=== PATIENT | male | born 2000 | race Caucasian/White ===

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

== ENCOUNTER 2022-06-17 15:56 | Emergency (ER) | payer OTHER, SELFPAY ==
--- NOTE | ~2022-06-17 | XR_ITS ---
EXAMINATION: XR chest 2V DATE: 06/17/2022 16:34 INDICATION: Shortness of breath and left-sided chest discomfort TECHNIQUE: frontal view of the chest was obtained. COMPARISON: Chest radiograph dated 10/26/2021 FINDINGS: Small left apical pneumothorax with 1.5 cm maximal separation of the pleural margins. Suture line is seen at the right apex suggesting partial pneumonectomy for a leaking apical bleb resulting in a righ t-sided pneumothorax. Lungs otherwise clear with no focal airspace opacities, pulmonary edema, pleura l effusion or right-sided pneumothorax. Right lung remains otherwise clear The cardiomediastinal silh ouette is normal and remains midline. Visualized bones and soft tissues are unremarkable. IMPRESSION: 1. New small left apical pneumothorax. Reviewed, dictated and finalized at location A.
--- NOTE | 2022-06-17 16:03 | ED.SOB ---
HPI - SOB/Dyspnea General Chief Complaint: Shortness of Breath/Dyspnea Stated Complaint: sob Time Seen by Provider: 06/17/22 16:10 Source: patient Mode of arrival: ambulatory Limitations: no limitations History of Present Illness HPI Narrative: Mr. Briseno is a 22-year-old male patient presenting to the clinic today with complaints of left-sided chest discomfort, pain between his shoulder blades, and shortness of breath. He reports that he is unable to get a deep breath in without having pain. States the pain is to the left upper chest. History of spontaneous pneumo. Reports the pain started approx 4 hours ago. Smoked THC last night and thinks he may have aspirated some of the water from the bong that he was smoking this. Smoked THC again today prior to the pain. Related Data Allergies Allergy/AdvReac Type Severity Reaction Status Date / Time poison charlee extract Allergy Unknown Rash Verified 06/17/22 16:01 Bumble Bee Allergy Unknown Swelling Uncoded 06/17/22 16:01 Wasp Allergy Unknown Swelling Uncoded 06/17/22 16:01 SALT WATER AdvReac Unknown Unknown Uncoded 06/17/22 16:01 Review of Systems Review of Systems: Pertinent positives per HPI. Patient denies any fever, chills, rash, headache, visual changes, dizziness, cough, runny nose, sore throat, shortness of breath, chest pain, palpitations, nausea, vomiting, diarrhea, constipation, abdominal pain, or any urinary issues. PMFSH Past Medical History Medical History No acute medical problems Social History Social History Smoking status: Current every day smoker Alcohol intake: current Gender identity (if verbalized by the patient): Male Spiritual care concerns: No Comments At the time of my signature, I reviewed and agree with the nursing past medical, surgical, social, and family history. There is no relevant family history pertinent to the patient complaint. Exam Narrative: General: Well-developed, well nourished, in no apparent distress Head: Normocephalic, atraumatic Eyes: Pupils equally round and reactive to light bilaterally, EOM intact, sclera and conjunctive clear, no discharge, lids normal Ears: TMs intact and clear, ear canals clear, no drainage, grossly hearing normal. Nose: Nares patent, no discharge, mild good inflammation, no sinus tenderness. Mouth: Oropharynx without lesions or masses, good dentition, MMM. Neck: Supple, trachea midline, no enlargement of anterior or posterior cervical nodes, no thyroid masses or goiter palpable. Cardio: Regular rate and rhythm, s1 and s2 normal, no murmur appreciated. Resp: Faint rub/crackles heard over the left midlung posteriorly, no rhonchi or wheezing, able to speak in full sentences, SPO2 99% on room air. Course Course Emergency Course: Portions of this record may have been created with voice recognition software. Level of Care: Express Care Visit Vital Signs Vital signs: Vital signs reviewed MDM - SOB/Dyspnea MDM Narrative Medical decision making narrative: At the time of visit patient is resting comfortably on the exam table. X-ray was performed and he has a small 1.5 cm left apex spontaneous pneumo. Spoke with Dr. Mohan- Radiologist regarding x-ray/ patient case and he states he would feel comfortable sending patient home and have him follow up if symptoms worsen. Supportive measures were discussed with the patient and he is to follow-up with his weight checker. If his chest pain or shortness of breath gets any worse he is to go to the ER. We will send in a prescription for albuterol inhaler to see if this helps some with any shortness of breath. Differential Diagnosis Differential diagnosis: Likely acute exacerbation of chronic obstructive airways disease, asthma with exacerbation, pulmonary embolism and other (Spontaneous pneumo, pleurisy) Imaging Data Radiologist's impression: [place]
[2022-06-17 16:05] VITALS: BP 113/63; PULSE 90; RESP 16; TEMP 36.9; O2SAT 99
== END 2022-06-17 17:04 | disposition home or self-care (01) ==
PROVIDERS: Emergency Provider Nurse Practitioner Family; PCP Internal Medicine
DX: J93.11 Primary spontaneous pneumothorax (principal)
CPT/HCPCS: 71046; 99213; G0463

== ENCOUNTER 2022-12-08 11:44 | Emergency (ER) | payer OTHER, SELFPAY ==
--- NOTE | ~2022-12-08 | XR_ITS ---
EXAMINATION: XR chest 2V DATE: 12/08/2022 12:09 INDICATION: Cough. Shortness of breath. TECHNIQUE: Frontal and lateral views of the chest were obtained. COMPARISON: Chest 2 views 06/17/2022 FINDINGS: There are staple lines at the lung apices. The chest demonstrates clear lungs without pneum onia, pleural effusion, or pneumothorax. The heart size is normal. IMPRESSION: 1. No acute cardiopulmonary disease. Reviewed, dictated and finalized at location A. ORATIVE CARE TECHNICIAN
--- NOTE | 2022-12-08 11:50 | ED.URI ---
HPI - URI/Sore Throat General Chief Complaint: Upper Respiratory Infection Stated Complaint: cold sx Time Seen by Provider: 12/08/22 11:51 Source: patient Mode of arrival: ambulatory Limitations: no limitations History of Present Illness HPI Narrative: Anali is a 22-year-old male patient presenting to the clinic today with complaints of productive cough of green phlegm, feeling feverish, chills, chest burning, and sore throat x1 week. He reports he does have some mild shortness of breath at times. Denies any known exposure to a will COVID, flu, or strep. Does have history spontaneous pneumothorax bilaterally MD elicited complaint: sore throat and nasal congestion Related Data Allergies Allergy/AdvReac Type Severity Reaction Status Date / Time poison charlee extract Allergy Unknown Rash Verified 12/08/22 11:47 Bumble Bee Allergy Unknown Swelling Uncoded 12/08/22 11:47 Wasp Allergy Unknown Swelling Uncoded 12/08/22 11:47 SALT WATER AdvReac Unknown Unknown Uncoded 12/08/22 11:47 Review of Systems Review of Systems: Pertinent positives per HPI. Patient denies any rash, headache, visual changes, dizziness, shortness of breath, chest pain, palpitations, nausea, vomiting, diarrhea, constipation, abdominal pain, or any urinary issues. PMFSH Past Medical History Medical History No acute medical problems Social History Social History Smoking status: Current every day smoker Alcohol intake: current Gender identity (if verbalized by the patient): Male Spiritual care concerns: No Comments At the time of my signature, I reviewed and agree with the nursing past medical, surgical, social, and family history. There is no relevant family history pertinent to the patient complaint. Exam Narrative: General: Well-developed, well nourished, in no apparent distress Head: Normocephalic, atraumatic Eyes: Pupils equally round and reactive to light bilaterally, EOM intact, sclera and conjunctive clear, no discharge, lids normal Ears: TMs intact and clear, ear canals clear, no drainage, grossly hearing normal. Nose: Nares patent, clear nasal discharge, moderate inflammation, no sinus tenderness. Mouth: Oral pharynx without lesions or masses, good dentition, MMM. Postnasal drip, oropharynx red Neck: Supple, trachea midline, mild enlargement of anterior or posterior cervical nodes, no thyroid masses or goiter palpable. Cardio: Regular rate and rhythm, s1 and s2 normal, no murmur appreciated. Resp: Diminished lung sounds in the bases otherwise clear, no rhonchi, rales, wheezing or rubs Course Course Emergency Course: Portions of this record may have been created with voice recognition software. Level of Care: Express Care Visit Vital Signs Vital signs: Vital Signs Temperature 36.3 C L 12/08/22 11:51 Pulse Rate 83 12/08/22 11:51 Respiratory Rate 20 12/08/22 11:51 Blood Pressure 118/74 12/08/22 11:51 Pulse Oximetry 97 12/08/22 11:51 Oxygen Delivery Room Air 12/08/22 11:51 Temperature 36.3 C L 12/08/22 11:51 Pulse Rate 83 12/08/22 11:51 Respiratory Rate 20 12/08/22 11:51 Blood Pressure 118/74 12/08/22 11:51 Pulse Oximetry 97 12/08/22 11:51 Oxygen Delivery Room Air 12/08/22 11:51 Vital signs reviewed MDM - URI/Sore Throat MDM Narrative Medical decision making narrative: At the time of visit patient is resting comfortably on exam table. Chest x-ray was and strep screen were obtained. Strep screen was negative in the clinic today. Chest x-ray was negative for any sign pneumonia. I suspect patient has bronchitis/upper respiratory infection. Symptoms have been going on for 1 week and he is having a productive cough with green phlegm +fever. He is a current smoker. Due to his past medical history, I will go ahead and treat him with around prednisone, azithromycin,
[2022-12-08 11:51] VITALS: BP 118/74; PULSE 83; RESP 20; TEMP 36.3; O2SAT 97
== END 2022-12-08 12:20 | disposition home or self-care (01) ==
PROVIDERS: Emergency Provider Nurse Practitioner Family; PCP Internal Medicine
DX: J40 Bronchitis, not specified as acute or chronic (principal); J06.9 Acute upper respiratory infection, unspecified; F17.200 Nicotine dependence, unspecified, uncomplicated
CPT/HCPCS: 71046; 87081; 87880; 99213; G0463

== ENCOUNTER 2023-09-15 17:48 | Emergency (ER) | payer OTHER, SELFPAY ==
--- NOTE | ~2023-09-15 | XR_ITS ---
EXAMINATION: XR chest 2V 09/15/2023 18:21 INDICATION: History of collapsed lung. Chest pain with shortness of breath. PROCEDURE: 2 view chest COMPARISON: Comparison to multiple prior studies sequentially, with oldest reviewed study dated 10/14. FINDINGS: The lungs are clear. There are surgical sutures at the right apex. The cardiomediastinal si lhouette is within normal limits. There are no pleural effusions. There is no pneumothorax suspecte d. IMPRESSION: 1: NO ACUTE CARDIOPULMONARY DISEASE. Reviewed, dictated and finalized at location A.
[2023-09-15 18:05] VITALS: BP 103/69; PULSE 97; RESP 16; TEMP 37.5; O2SAT 97
--- NOTE | 2023-09-15 18:24 | ED.GENADULT ---
HPI - General Adult General Chief complaint: Upper Respiratory Infection Stated complaint: Sinus Time Seen by Provider: 09/15/23 18:24 Source: patient, RN notes reviewed and old records reviewed Mode of arrival: ambulatory Limitations: no limitations History of Present Illness HPI narrative: 23-year-old male presents to the [facility] with complaints of sinus congestion and sore throat for 2 days. States this morning he woke up with cough, shortness of breath. States he has a history of pneumothorax. Onset (ago): day(s) (2) Related Data Allergies Allergy/AdvReac Type Severity Reaction Status Date / Time poison charlee extract Allergy Unknown Rash Verified 09/15/23 18:13 Bumble Bee Allergy Unknown Swelling Uncoded 12/08/22 11:47 Wasp Allergy Unknown Swelling Uncoded 12/08/22 11:47 SALT WATER AdvReac Unknown Unknown Uncoded 12/08/22 11:47 Review of Systems Review of Systems: All systems reviewed & are unremarkable except as noted in HPI and below Constitutional: Constitutional: Reports no additional constitutional complaints Eyes: Eyes: Reports no additional eye complaints ENT: Reports as per HPI Cardiovascular: Cardiovascular: Reports no additional cardiovascular complaints, Denies chest pain and Denies dyspnea Respiratory: Respiratory: Reports as per HPI, Denies chest congestion, Reports cough and Reports dyspnea Gastrointestinal: Gastrointestinal: Reports no additional gastrointestinal complaints, Denies abdominal pain, Denies nausea and Denies vomiting Musculoskeletal: Musculoskeletal: Reports no additional musculoskeletal complaints Integumentary/Breasts: Skin/Breast: Reports system reviewed and no additional complaints, except as docu Neurologic: Reports system reviewed and no additional complaints, except as documented Psychiatric: Psychiatric: Reports no additional psychiatric complaints Allergic/Immunologic: Allergic/Immunologic: Reports no additional allergic/immunologic complaints [facility] Past Medical History Medical History (Updated 09/16/23 @ 16:09 by Soco Rhoades APRN) No acute medical problems Spontaneous pneumothorax Surgical History Surgical History (Updated 09/16/23 @ 16:07 by Soco Rhoades APRN) History of lung surgery Blebecotmy to me, right apical Social History Social History Smoking status: Current every day smoker Alcohol intake: current Gender identity (if verbalized by the patient): Male Spiritual care concerns: No Comments At the time of my signature, I reviewed and agree with the nursing past medical, surgical, social, and family history. There is no relevant family history pertinent to the patient complaint. Exam Const: General: cooperative, healthy appearing, comfortable, no acute distress, well developed, alert and well nourished Nutritional Appearance: well nourished Orientation/consciousness: patient oriented x3 Limitations: no limitations HENMT: Head: normal to inspection Ears: hearing grossly normal bilaterally, external ears normal, TM's normal bilaterally, EAC's normal, mastoids normal and no periauricular adenopathy Face/Nose/Sinus: Normal external nose present, Normal nares present, Normal nasal mucous membranes and turbinates present, normal facial exam and face symmetric Face and sinus: normal facial exam and face symmetric Mouth: Yes Normal oral and palatal mucosa present, Yes lip normal and Yes moist mucous membranes Throat: posterior oropharynx normal, uvula midline, postnasal drainage and no uvular edema Eyes: General: appearance normal, both eyes and all related structures Alignment and Position: alignment normal Periorbital: periorbital findings normal Pupils: Equal, round and reactive pupils present EOM: EOMs intact bilaterally Neck: Neck: normal visual inspection, full ROM, no lymphadenopathy and no meningeal signs Chest: Chest palpation & inspection: normal inspection of the chest Res
== END 2023-09-15 18:36 | disposition home or self-care (01) ==
PROVIDERS: Emergency Provider Nurse Practitioner; PCP Internal Medicine
DX: J06.9 Acute upper respiratory infection, unspecified (principal); J40 Bronchitis, not specified as acute or chronic; F17.200 Nicotine dependence, unspecified, uncomplicated
CPT/HCPCS: 71046; 87081; 87147; 87880; 99213; G0463

== ENCOUNTER 2025-02-18 13:44 | Emergency (ER) | payer OTHER, SELFPAY ==
[2025-02-18 13:55] VITALS: BP 132/83; PULSE 88; RESP 16; TEMP 37.6; O2SAT 100
[2025-02-18 14:29] LABS: EDUAAPPEAR Cloudy; EDUABILI Negative (Negative); EDUABLOOD Negative (Negative); EDUACOLOR1 Yellow; EDUAGLUCOSE Negative (Negative); EDUAKETONE Negative (Negative); EDUALEUKO Negative (Negative); EDUANITRATE Negative (Negative); EDUAPH 6.5; EDUAPROTEIN Negative (Negative); EDUAUROBILI 0.2
--- NOTE | 2025-02-18 14:38 | ED_ITS ---
HPI - Male Genitourinary General Chief complaint: Urogenital-Male Stated complaint: UTI/Male Problems Time Seen by Provider: 02/18/25 14:00 Source: patient Mode of arrival: ambulatory Limitations: no limitations History of Present Illness HPI Narrative: Anali is a 24-year-old male patient presenting to the clinic today with multiple complaints. He reports he is having painful ejaculations with his semen colored yellow with clumps/ gelatinous. Is concerned about bumps on the scrotum and on the shaft of his penis. Is concerned that he may have herpes. Also reports that he thinks is pilonidal cyst is coming back. Is having pain with setting and the area is tender. Has had history of pilonidal cyst the past and has gotten it lanced it and placed on antibiotics. He states he has not been sexually active for 1-2 years. He is heterosexual. Is an or new relationship and wanted to be checked for STIs prior to being intimate. Denies any fevers, chills, body aches, back pain, abdomen pain, or any testicle pain. Related Data Allergies Allergy/AdvReac Type Severity Reaction Status Date / Time poison charlee extract Allergy Unknown Rash Verified 02/18/25 14:02 Bumble Bee Allergy Unknown Swelling Uncoded 02/18/25 14:02 Wasp Allergy Unknown Swelling Uncoded 02/18/25 14:02 SALT WATER AdvReac Unknown Unknown Uncoded 02/18/25 14:02 Review of Systems Review of Systems: Pertinent positives per HPI. Patient denies any fever, chills, rash, headache, visual changes, dizziness, cough, runny nose, sore throat, shortness of breath, chest pain, palpitations, nausea, vomiting, diarrhea, constipation, abdominal pain. FORMERLY [facility], [facility] Past Medical History Medical History (Updated 02/18/25 @ 14:32 by Alex Wolff APRN) Spontaneous pneumothorax No acute medical problems Surgical History Surgical History History of lung surgery Blebecotmy to me, right apical Social History Social History Smoking status: Current every day smoker Alcohol intake: current Gender identity (if verbalized by the patient): Male Spiritual care concerns: No Comments At the time of my signature, I reviewed and agree with the nursing past medical, surgical, social, and family history. There is no relevant family history pertinent to the patient complaint. Exam Narrative: General: Well-developed, well nourished, in no apparent distress. Head: Normocephalic, atraumatic. Cardio: Regular rate and rhythm, s1 and s2 normal, no murmur appreciated. Resp: Clear to auscultation bilaterally, no rhonchi, rales, wheezing or rubs. Abdomen: Soft, pliable, bowel sounds present in all quadrants, non-tender to palpation, no organomegly, no CVAT tenderness. : Circumcised male without any vesicular or abnormal lesions. No rash. Does have a small benign mass to the right upper lateral scrotum-patient states he has had looked at before, no penile discharge Rectal: Top of left gluteal cleft red, swollen with tenderness with very little fluctuance. Course Course Emergency Course: Portions of this record may have been created with voice recognition software. Level of Care: Express Care Visit Vital Signs Vital signs: Vital Signs Temperature 37.6 C 02/18/25 13:55 Pulse Rate 88 02/18/25 13:55 Respiratory Rate 16 02/18/25 13:55 Blood Pressure 132/83 02/18/25 13:55 Pulse Oximetry 100 02/18/25 13:55 Oxygen Delivery Room Air 02/18/25 13:55 Temperature 37.6 C 02/18/25 13:55 Pulse Rate 88 02/18/25 13:55 Respiratory Rate 16 02/18/25 13:55 Blood Pressure 132/83 02/18/25 13:55 Pulse Oximetry 100 02/18/25 13:55 Oxygen Delivery Room Air 02/18/25 13:55 Vital signs reviewed MDM - Male Genitourinary MDM Narrative Medical decision making narrative: At the time of visit patient is resting comfortably on the exam table. Patient appears to be nontoxic. Labs: Urinalysis negative for any sign of blood, protein, or leukocytes. Chlamydia, gonorrhea, and Trichomonas testing was sent to the lab. Plan: Patient has a infected pilonidal cyst to the left upper gluteal cleft. Prescription for clindamycin and metronidazole was sent to the pharmacy. Awaiting STI testing for further treatment Supportive measures were discussed with the patient and they voiced understanding discharge instructions and agrees to treatment plan. Return precautions reviewed Differential Diagnosis Differential diagnosis: Likely urinary tract infection, priapism, urethritis, epididymitis, genital herpes simplex, prostatitis, acute retention of urine, inguinal hernia and other (Infected pilonidal cyst, STI) Lab Data Labs: Lab Results 02/18/25 Range/Units 14:26 POC Urine Color Yellow POC Urine Clarity Cloudy POC Urine pH 6.5 POC Ur Specif Clyde 1.020 POC Urine Protein Negative (Negative) POC Ur Glucose (UA) Negative (Negative) POC Urine Ketones Negative (Negative) POC Urine Blood Negative (Negative) POC Urine Nitrite Negative (Negative) POC Urine Bilirubin Negative (Negative) POC Urine Urobilinogen 0.2 POC U Leukocyte Esteras Negative (Negative) Discharge Plan Discharge Clinical Impression: Pilonidal cyst Patient Disposition: Home Condition: Stable Instructions: Antibiotic Form, Sexually Transmitted Diseases (ED), Safe Sex Practices (ED), Pilonidal Cyst (ED) Additional Instructions: Urinalysis is negative for any sign of urinary tract infection. Take metronidazole and clindamycin as prescribed to treat pilonidal cyst infection Take a daily probiotic-2 hours before 2 hours after taking when the doses of antibiotics We have tested/treated you for STIs in the clinic today. Avoid any sexual activity- includes oral, anal, or vaginal intercourse until you get results back and have completed any additional recommended treatment regimens. We will contact you if testing is positive and make sure your treatment was appropriate for the type of STI. If symptoms worsen after treatment recommend reevaluation with your PCP or Express care. Patient Language: Surinamese Prescriptions: New clindamycin HCl [Cleocin HCl] 300 mg capsule 300 mg PO Q8H 7 Days Qty: 21 0RF metronidazole 500 mg tablet 500 mg PO Q8H 7 Days Qty: 21 0RF Follow-up/Referrals: Breanne,Alison Jones MD [Primary Care Provider] - Time of Disposition: 14:33 Quality NIHSS Nursing Documentation ED NIHSS nursing documentation: reviewed/agree
[2025-02-18 21:20] LABS: Trichomonas Vag PCR NOT DETECTED (NOT DETECTE)
[2025-02-18 21:43] LABS: Chlamydia trachomatis NOT DETECTED (NOT DETECTE); Neisseria gonorrhoeae PCR NOT DETECTED (NOT DETECTE)
== END 2025-02-18 14:45 | disposition home or self-care (01) ==
PROVIDERS: Emergency Provider Nurse Practitioner Family; PCP Internal Medicine
DX: L05.91 Pilonidal cyst without abscess (principal); F17.200 Nicotine dependence, unspecified, uncomplicated
CPT/HCPCS: 81003; 87491; 87591; 87661; 99213; G0463

== ENCOUNTER 2025-03-03 14:42 | Emergency (ER) | payer OTHER, SELFPAY ==
--- NOTE | 2025-03-03 14:46 | ED_ITS ---
HPI - Skin/Abscess/Foreign Bdy General Chief complaint: Skin/Abscess/Foreign Body Stated complaint: area on buttocks bleeding Time Seen by Provider: 03/03/25 14:45 Source: patient Mode of arrival: ambulatory Limitations: no limitations History of Present Illness HPI narrative: Anali is a 24-year-old male patient presenting to the clinic today with complaints of a painful but is bleeding to his left buttocks. Was recently seen on February 18 and diagnosed with perirectal abscess/possible infected pilonidal cyst. Was given prescription for Flagyl and clindamycin but did not finish those medications. States the area started bleeding and draining yellow purulent discharge today. Denies any fevers, chills, body aches. Has had perirectal abscess in the past. Related Data Allergies Allergy/AdvReac Type Severity Reaction Status Date / Time poison charlee extract Allergy Unknown Rash Verified 03/03/25 14:54 Bumble Bee Allergy Unknown Swelling Uncoded 03/03/25 14:54 Wasp Allergy Unknown Swelling Uncoded 03/03/25 14:54 SALT WATER AdvReac Unknown Unknown Uncoded 03/03/25 14:54 Review of Systems 2 Review of Systems: Pertinent positives per HPI. Patient denies any fever, chills, rash, headache, visual changes, dizziness, cough, runny nose, sore throat, shortness of breath, chest pain, palpitations, nausea, vomiting, diarrhea, constipation, abdominal pain, or any urinary issues. PMFSH Past Medical History Medical History Spontaneous pneumothorax No acute medical problems Surgical History Surgical History History of lung surgery Blebecotmy to me, right apical Social History Social History Smoking status: Current every day smoker Alcohol intake: current Gender identity (if verbalized by the patient): Male Spiritual care concerns: No Comments At the time of my signature, I reviewed and agree with the nursing past medical, surgical, social, and family history. There is no relevant family history pertinent to the patient complaint. Exam Narrative: General: Well-developed, well nourished, in no apparent distress Head: Normocephalic, atraumatic. Cardio: Regular rate and rhythm, s1 and s2 normal, no murmur appreciated. Resp: Clear to auscultation bilaterally, no rhonchi, rales, wheezing or rubs. Rectum: Palpable 1 cm x 1.5 cm firm abscess with opening without drainage at 9:00 of the left perianal area. Mildly tender to palpation with mild erythema Course Course Emergency Course: Portions of this record may have been created with voice recognition software. Level of Care: Express Care Visit Vital Signs Vital signs: Vital signs reviewed MDM - Skin/Abscess/Foreign Bdy MDM Narrative Medical decision making narrative: At the time of visit patient is resting comfortably on the exam table. Patient appears to be nontoxic. Plan: I saw this patient on February 18 and it appeared at that time he had a pilonidal cyst to the right tailbone/gluteal cleft however this perirectal abscess is at 9:00 of the perirectal area. Will send prescription in for clindamycin and metronidazole. Will given for General surgery is a recurring problem for the patient. Supportive measures were discussed with the patient and they voiced understanding discharge instructions and agrees to treatment plan. Return precautions reviewed Differential Diagnosis Differential diagnosis: Likely abscess of skin or subcutaneous tissue, viral exanthem, dermatophytosis, urticaria, herpes zoster, allergic reaction to drug, cellulitis, eczema, insect bites, impetigo and contact dermatitis Discharge Plan Discharge Clinical Impression: Abscess, perirectal Patient Disposition: Home Condition: Stable Instructions: Antibiotic Form, Anorectal Abscess and Anal Fistula (ED) Additional Instructions: To complete warm Sitz baths 4 times daily with Epson salt May take Tylenol/Motrin as needed for pain Take clindamycin a metronidazole as prescribed Follow-up with general surgery-Dr. Weaver- call office to schedule an a ppointment Patient Language: Bahamian Prescriptions: New clindamycin HCl [Cleocin HCl] 300 mg capsule 300 mg PO Q8H 10 Days Qty: 30 0RF metronidazole 500 mg tablet 500 mg PO Q8H 10 Days Qty: 30 0RF Follow-up/Referrals: PHYSICIAN NOT ON STAFF,NONSTAFF [Primary Care Provider] - Crispin Horvath DO [Physician] - 1 Day (Recurrent perirectal abscess) Time of Disposition: 15:04 Quality NIHSS Nursing Documentation ED NIHSS nursing documentation: reviewed/agree
[2025-03-03 14:51] VITALS: BP 117/74; PULSE 90; RESP 17; TEMP 37.1; O2SAT 98
== END 2025-03-03 15:10 | disposition home or self-care (01) ==
PROVIDERS: Emergency Provider Nurse Practitioner Family
DX: K61.1 Rectal abscess (principal); F17.200 Nicotine dependence, unspecified, uncomplicated
CPT/HCPCS: 99213; G0463

== ENCOUNTER 2025-04-07 17:17 | Emergency (ER) | payer OTHER, SELFPAY ==
--- NOTE | 2025-04-07 17:20 | ED.URI ---
HPI - URI/Sore Throat General Chief Complaint: Upper Respiratory Infection Stated Complaint: Sore Throat Time Seen by Provider: 04/07/25 17:18 Source: patient Mode of arrival: ambulatory Limitations: no limitations History of Present Illness HPI Narrative: Anival was a 25-year-old male patient presenting to the clinic today with complaints of sore throat x1 day. He reports he is having burning to his tongue and to the back was throat with redness and swelling. States his tongue his turned white. Denies any recent antibiotic use. MD elicited complaint: sore throat and nasal congestion Related Data Allergies Allergy/AdvReac Type Severity Reaction Status Date / Time poison charlee extract Allergy Unknown Rash Verified 03/03/25 14:54 Bumble Bee Allergy Unknown Swelling Uncoded 03/03/25 14:54 Wasp Allergy Unknown Swelling Uncoded 03/03/25 14:54 SALT WATER AdvReac Unknown Unknown Uncoded 03/03/25 14:54 Review of Systems Review of Systems: Pertinent positives per HPI. Patient denies any fever, chills, rash, headache, visual changes, dizziness, cough, shortness of breath, chest pain, palpitations, nausea, vomiting, diarrhea, constipation, abdominal pain, or any urinary issues. PMFSH Past Medical History Medical History Spontaneous pneumothorax No acute medical problems Surgical History Surgical History History of lung surgery Blebecotmy to me, right apical Social History Social History Smoking status: Current every day smoker Alcohol intake: current Gender identity (if verbalized by the patient): Male Spiritual care concerns: No Comments At the time of my signature, I reviewed and agree with the nursing past medical, surgical, social, and family history. There is no relevant family history pertinent to the patient complaint. Exam Narrative: General: Well-developed, well nourished, in no apparent distress Head: Normocephalic, atraumatic Eyes: Pupils equally round and reactive to light bilaterally, EOM intact, sclera and conjunctive clear, no discharge, lids normal Ears: TMs intact and clear, ear canals clear, no drainage, grossly hearing normal. Nose: Nares patent, no discharge, no inflammation, no sinus tenderness. Mouth: Oral pharynx tongue with white plaques and beefy appearing redness to oral pharynx, good dentition, MMM. Neck: Supple, trachea midline, no enlargement of anterior or posterior cervical nodes, no thyroid masses or goiter palpable. Cardio: Regular rate and rhythm, s1 and s2 normal, no murmur appreciated. Resp: Clear to auscultation bilaterally, no rhonchi, rales, wheezing or rubs Course Course Emergency Course: Portions of this record may have been created with voice recognition software. Level of Care: Express Care Visit Vital Signs Vital signs: Vital Signs Temperature 37.3 C 04/07/25 17: Pulse Rate 94 04/07/25 17: Respiratory Rate 20 04/07/25 17:26 Blood Pressure 141/59 H 04/07/25 17:26 Pulse Oximetry 98 04/07/25 17:26 Oxygen Delivery Room Air 04/07/25 17:26 Temperature 37.3 C 04/07/25 17:26 Pulse Rate 94 04/07/25 17:26 Respiratory Rate 20 04/07/25 17:26 Blood Pressure 141/59 H 04/07/25 17:26 Pulse Oximetry 98 04/07/25 17:26 Oxygen Delivery Room Air 04/07/25 17:26 Vital signs reviewed MDM - URI/Sore Throat MDM Narrative Medical decision making narrative: At the time of visit patient is resting comfortably on the exam table. Patient appears to be nontoxic. Labs: Strep test was performed. Testing was negative. We will send strep for culture. Plan: I suspect patient has oral thrush. Prescription for nystatin swish and swallow was sent to the pharmacy. Supportive measures were discussed with the patient and they voiced understanding discharge instructions and agrees to treatment plan. Return precautions reviewed Differential Diagnosis Differential diagnosis: Likely upper respiratory infection, otitis media, sinusitis, viral infection, bronchitis, influenza, pharyngitis and other (Thrush) Lab Data Labs: Lab Results 04/07/25 Range/Units 17:24 POC Grp A Strep Screen Negative (Negative) Discharge Plan Discharge Clinical Impression: Oral thrush Patient Disposition: Home Condition: Stable Instructions: Antibiotic Form, Oral Candidiasis (ED) Additional Instructions: Strep test was negative in the clinic today. We will send strep for culture. Take prescription medications only as prescribed-nystatin swish and swallow Increase fluids and stay well hydrated Tylenol/motrin for pain/fever Flonase and OTC antihistamines as directed Vicks vapor rub to open sinuses Sinus rinses for congestion Cepacol spray, cough drops, throat lozenges, warm tea with honey/lemon, gargle salt water to soothe throat BRAT diet for diarrhea Clear liquids x 24 hours then advance as tolerated for nausea/vomiting Go to the ED if you develop a worsening in your condition- high fever not controlled by Tylenol or Motrin, dehydration, weakness, lethargy, shortness of breath, or chest pain. Follow up with your PCP in 3-5 days if symptoms persist. Patient Language: Macedonian Prescriptions: New nystatin 100,000 unit/mL suspension 5 ml PO QID 10 Days Qty: 200 0RF Rx Instructions: swish and swallow Follow-up/Referrals: PHYSICIAN,LEATHER FITTER [Primary Care Provider] - Time of Disposition: 17:36 Quality NIHSS Nursing Documentation ED NIHSS nursing documentation: reviewed/agree
[2025-04-07 17:26] VITALS: BP 141/59; PULSE 94; RESP 20; TEMP 37.3; O2SAT 98
[2025-04-07 17:36] LABS: EDSTREPNEGPOS1 Negative (Negative)
== END 2025-04-07 17:45 | disposition home or self-care (01) ==
PROVIDERS: Emergency Provider Nurse Practitioner Family
DX: B37.0 Candidal stomatitis (principal); F17.200 Nicotine dependence, unspecified, uncomplicated
CPT/HCPCS: 87081; 87880; 99213; G0463

== ENCOUNTER 2025-06-05 15:05 | Emergency (ER) | payer OTHER, SELFPAY ==
--- NOTE | 2025-06-05 15:07 | ED_ITS ---
HPI - General Adult General Chief complaint: Wound/Laceration Stated complaint: Wound Check Time Seen by Provider: 06/05/25 15:06 Source: patient Mode of arrival: ambulatory Limitations: no limitations History of Present Illness HPI narrative: Pt is a 25 y/o male presenting with c/o wound check. Reports feeling pain and drainage at 0200 today. Reports hx of perirectal abscess multiple times in past but reports only 1 I&D which was performed here in March. Also reports enlarged lymph nodes to groin. No fevers, chills. No tx initiated [employer]. No additional complaints. Related Data Home Medications ?Medication ?Instructions ?Recorded ?Confirmed ?Last Taken ?Type No Home Medications 06/05/25 06/05/25 Unknown History Allergies Allergy/AdvReac Type Severity Reaction Status Date / Time poison charlee extract Allergy Unknown Rash Verified 03/03/25 14:54 Bumble Bee Allergy Unknown Swelling Uncoded 03/03/25 14:54 Wasp Allergy Unknown Swelling Uncoded 03/03/25 14:54 SALT WATER AdvReac Unknown Unknown Uncoded 03/03/25 14:54 Review of Systems Review of Systems: CONSTITUTIONAL: Denies body aches, fever, chills, or sweats. EYES: Denies visual changes, redness, or discharge. ENT: Denies rhinorrhea, congestion, sore throat, or otalgia. CARDIOVASCULAR: Denies chest pain, palpitations, or edema. RESPIRATORY: Denies cough or dyspnea. GASTROINTESTINAL: Denies abdominal pain, nausea, vomiting, or diarrhea. GENITOURINARY: Denies dysuria or hematuria. SKIN:Reports suspected draining abscess near anus, reports enlarged lymph nodes to groin Denies rash, itching MUSCULOSKELETAL: Denies back pain, joint pain, or myalgia. NEUROLOGIC: Denies headache, numbness, tingling, or weakness. PSYCH: Denies depression or anxiety. All systems reviewed & are unremarkable except as noted in HPI and below PMFSH Past Medical History Medical History Spontaneous pneumothorax No acute medical problems Surgical History Surgical History History of lung surgery Blebecotmy to me, right apical Social History Social History Smoking status: Current every day smoker Alcohol intake: current Gender identity (if verbalized by the patient): Male Spiritual care concerns: No Exam Narrative: GENERAL: Well-appearing, well-nourished, and in no acute distress. HEAD: Normocephalic, atraumatic. EYES: EOMI. No redness or drainage. Conjunctivae normal. ENT: Mucous membranes pink and moist. NECK: Normal AROM. Supple. CHEST: No respiratory distress. HEART: Tachycardic. Normal peripheral pulses. ABDOMEN: Soft, nontender, nondistended, normal active bowel sounds. MUSCULOSKELETAL: No bony tenderness. EXTREMITIES: Normal range of motion. No edema. SKIN: Warm, dry, no rash. Capillary refill normal. Normal skin turgor. +tender, mobile L. inguinal lymphadenopathy. Copious amount of bloody, purulent drainage noted to intergluteal cleft. There is an opening noted near the anus (left) with active purulent drainage, exquisitely tender to palpation NEURO: No focal deficits. Alert and oriented x3. Gait steady. PSYCH: Normal affect. No signs of depression or anxiety. Course Course Emergency Course: Given his presenting sx, physical exam findings, recurrence (drained here in March), I recommended he be transferred to ER for further diagnostic work up/treatment as I suspect inadequate drainage in the outpatient setting in March--would benefit from advanced imaging to determine the degree/presence of fistula ([place])--likely needs a fistulotomy and not just an I&D in the [facility] setting. He agreed and requested to be transferred to [facility] via POV. Pt is aware that he should go straight to ER and remain NPO until instructed otherwise. Verbal report given to Dr. Diop. Level of Care: Express Care Visit Vital Signs Vital signs: Vital Signs Temperature 97.2 F L 06/05/25 15:12 Pulse Rate 112 H 06/05/25 15:12 Respiratory Rate 18 06/05/25 15:12 Blood Pressure 117/73 06/05/25 15:12 Pulse Oximetry 98 06/05/25 15:12 Oxygen Delivery Room Air 06/05/25 15:12 Temperature 97.2 F L 06/05/25 15:12 Pulse Rate 112 H 06/05/25 15:12 Respiratory Rate 18 06/05/25 15:12 Blood Pressure 117/73 06/05/25 15:12 Pulse Oximetry 98 06/05/25 15:12 Oxygen Delivery Room Air 06/05/25 15:12 Transfer Transfered to: [facility] Transportation: Other (POV) Transfer rationale: access to higher level of care/specialist Accepting physician: Chikis Rod comments: Aware of NPO status, go straight to ER. Medical Decision Making Vital Signs Vital Signs: Vital Signs Temperature 97.2 F L 06/05/25 15:12 Pulse Rate 112 H 06/05/25 15:12 Respiratory Rate 18 06/05/25 15:12 Blood Pressure 117/73 06/05/25 15:12 Pulse Oximetry 98 06/05/25 15:12 Oxygen Delivery Room Air 06/05/25 15:12 Temperature 97.2 F L 06/05/25 15:12 Pulse Rate 112 H 06/05/25 15:12 Respiratory Rate 18 06/05/25 15:12 Blood Pressure 117/73 06/05/25 15:12 Pulse Oximetry 98 06/05/25 15:12 Oxygen Delivery Room Air 06/05/25 15:12 Discharge Plan Discharge Clinical Impression: Abscess, perirectal, Lymphadenopathy, inguinal Patient Disposition: Home Condition: Stable Instructions: Antibiotic Form Patient Language: Greenlandic Prescriptions: No Action No Home Medications Follow-up/Referrals: PHYSICIAN,SHODER FILLER [Primary Care Provider] - 06/05/25 Time of Disposition: 15:22
[2025-06-05 15:12] VITALS: BP 117/73; PULSE 112; RESP 18; TEMP 36.2; O2SAT 98
== END 2025-06-05 15:35 | disposition short-term general hospital (02) ==
PROVIDERS: Emergency Provider Registered Nurse
DX: K61.1 Rectal abscess (principal); R59.0 Localized enlarged lymph nodes; F17.200 Nicotine dependence, unspecified, uncomplicated
CPT/HCPCS: 99212; G0463

== ENCOUNTER 2025-06-05 16:00 | Emergency (ER) | payer OTHER, SELFPAY ==
--- NOTE | ~2025-06-05 | CT_ITS ---
EXAMINATION: CT abdomen pelvis w con DATE: 06/05/2025 23:29 INDICATION: Left perirectal abscess TECHNIQUE: Computed tomography (CT) of the abdomen and pelvis was performed with 100 mL Omnipaque-350 intravenous contrast. Automated exposure control and iterative reconstruction technique were employe d. The dose-length product was 196.82 mGy-cm. COMPARISON: None FINDINGS: Lung bases are clear. Heart size is normal. No pericardial or pleural effusion. Liver, gallbladder, s pleen, pancreas, bilateral adrenal glands and right kidney are normal. 2 mm nonobstructing left renal stone. Bladder is normal. Bowels including the retrocecal appendix are normal. No evident perirectal abscess. No free intraperitoneal gas or fluid. No pathologically enlarged abdominal or pelvic lympha denopathy. 5 mm retrolisthesis L5 on S1 with mild associated disc height loss. IMPRESSION: 1. Prominent perirectal abscess or acute intra-abdominal/pelvic process. 2. 2 mm nonobstructing left renal stone. Reviewed, dictated and finalized at location A.
--- OUTSIDE RECORDS SUMMARY | 2025-06-05 16:02 | XMS_ITS | Clinical Summary ---
Author Organization [facility] Address [address] [place] [id number] Care Team Providers Care Research Project Manager Name Role Phone Dewey Sanchez MD Primary Care Provider [phone] Allergies No known active allergies Social History Tobacco Use Types Packs/Day Years Used Date Smoking Tobacco: Some Days Smokeless Tobacco: Never Alcohol Use Standard Drinks/Week Comments No 0 (1 standard drink = 0.6 oz pur e alcohol) AUDIT-C Answer Date Recorded Frequency of Alcohol Consumption Never 09/02/2019 Average Number of Drinks Not on file 019 Frequency of Binge Drinking Not on file 08/15 Sex and Gender Information Value Date Recorded Sex Assigned at Not on file Legal Sex Male 4:57 PM CDT Gender Identity Not on file Sexual Orientation Not on file Last Filed Vital Signs Vital Sign Reading Time Taken Comments Blood Pressure 108/69 09/02/2019 9:14 PM CDT Pulse 64 09/02/2019 9:14 PM CDT Temperature 37.4 C (99.3 F) 09/02/2019 5:01 PM CDT Respiratory Rate 18 09/02/2019 9:14 PM CDT Oxygen Saturation 100% 09/02/2019 9:14 PM CDT Inhaled Oxygen Concentration - - Weight 57.6 kg (127 lb) 09/02/2019 5:01 PM CDT Height 185.4 cm (6' 1) 09/02/2019 5:01 PM CDT Body Mass Index 16.76 09/02/2019 5:01 PM CDT Plan of Treatment Health Maintenance Due Date Last Done Comments Annual Physical 2005 Pneumococcal Vaccine: Pediatrics (0 to 5 Years) and At-Risk Patients (6 to 49 Years) (1 of 1 - PPSV23) 2008 03/23/2006, 03/13/2003, 2002 HPV Vaccines (2 - Male 2-dos e series) 01/12/2017 07/15/2016 Meningococcal B Vaccine (1 o f 2 - Standard) 2018 Hepatitis C 2020 DTaP, Tdap and Td Vaccines ( 2 - Tdap) 2021 2002 Hepatitis B Vaccines (1 of 3 - 19+ 3-dose series) 2021 COVID-19 Vaccine (1 - 2023-2 5 season) 2024 Meningococcal Vaccine Aged Out 06/20/2015 No jenny antonino eligible based on patient's age to complete this topic RSV Immunizations Under 20 Months Aged Out No longer eligible b ased on patient's age to complete this topic Insurance [facility] [place] Care Teams Research Project Manager Relationship Specialty Start Date End Date Dewey Sanchez MD [address] [place] [address] PCP - General 09/02/19
--- OUTSIDE RECORDS SUMMARY | 2025-06-05 16:02 | XMS_ITS | Data Portability ---
Author Organization [place] [facility] [employer], Main Office Address [address] [place] [address] Assessment No assessment recorded. Plan of Treatment Reminders Order Date Submit Date Provider Last Modified By Organization Details Last Modified Time Details Appointments None recorded. Lab None recorded. Referral urologist referral - Please call patient schedule an appointment . Thank you. 2023 024 [email or web address] 5 Alonzo Avila, [facility]4 [facility], [facility] [address], [place], [address], 12:15:57 mental health counselor referral - Please call patient to schedule an appointment . Thank you. 2023 024 [email or web address] [facility], [address], [place], [address], 08:48:17 urologist referral - Please call patient schedule an appointment 2023 024 [email or web address] [facility], [address] [place] [address] [address], [place], [address], 4 13:38:[address] referral - Please schedule at [place] location. Please call patient to schedule an appointment . 2023 024 [email or web address] [facility], [address] [place], [address], 13:38:04 Procedures None recorded. Surgeries None recorded. Imaging US, scrotum - *Please call pt to schedule* [email or web address] [place] [address] Center, [address], [place], [address], 4 10:11:49 US, scrotum - *Please call pt to schedule* 2023 024 [email or web address] [address] [facility] ([facility]), [address] [facility], [place], [address], 4 09:06:00 Medication Orders sulfamethox azole 800 mg-trimetho prim 160 mg tablet 2023 024 [facility] #[id number], [address], [place], [address], 10:23:23 Patient TargetsNo targets recorded. Patient InstructionsNo instructions recorded. Reason for Referral Political Anthropologist Referral for L esion of skin of left ear Please schedule at [place] location. Please call patient to schedule an appointment. Referring Physician: Family Nichole Skinner, Encounter Date: 12/21/2023 Urologist Referral for Scrot al mass Please call patient schedule an appointment Referring Physician: Family Nichole Skinner, Encounter Date: 12/21/2023 Urologist Referral for Scrot al mass scrotal mass Please call patient schedule an appointment. Thank you. Referring Physician: Family Nichole Skinner, Encounter Date: 08/07/2024 Mental Health Counselor Refe rral for Panic attack anxiety, panic attacks Please call patient to schedule an appointment. Thank you. Referring Physician: Family Nichole Skinner, Encounter Date: 08/07/2024 Problems Name Problem SNOMED Code Status Onset Date Resolution Date Notes Provider Name and Address Organization Details Recorded Time Lesion of skin of left ear 3760319798631893 6 Active 2023 RONI Skinner [address], [address], [place], [address], [facility] [facility] 4 15:49:55 Scrotal mass 05838219 Active 2023 RONI Skinner [address], [address], [place], [address], [facility] 4 15:54:56 Abscess of buttock 80542699 Active 2023 RONI Skinner [address], [address], [place], [address], [employer] [facility] [employer] 4 10:15:52 Panic attack 409330802 Active 2023 RONI Skinner [address], [address], [place], [address], [facility] 4 10:20:40 Problem Notes None recorded. Medical Equipment None Reported. Allergies No known drug allergies Medications Name Sig Start Date Stop Date Status Note LastModified by Organization Details LastModified Time clindamycin HCl 300 mg capsule TAKE 1 CAPSULE BY MOUTH EVERY 8 HOURS FOR 7 DAYS active Not Available Not Available No t Available prednisone 20 mg tablet TAKE 2 TABLETS BY MOUTH DAILY FOR 3 DAYS THEN TAKE 1 TABLET BY MOUTH DAILY FOR 3 DAYS active Not Available Not Available No t Available metronidazole 500 mg tablet TAKE 1 TABLET BY MOUTH EVERY 8 HOURS FOR 7 DAYS active Not Available Not Available No t Available sulfamethoxazol e 800 mg-trimethoprim 160 mg tablet TAKE 1 TABLET BY MOUTH EVERY 12 HOURS FOR 7 DAYS active Not Available Not Available No t Available amoxicillin 500 mg tablet TAKE 1 TABLET BY MOUTH EVERY 12 HOURS FOR 10 DAYS active Not Available Not Available No t Available albuterol sulfate HFA 90 mcg/actuation aerosol inhaler TAKE 2 PUFFS FOUR TIMES DAILY NEEDED. active Not Available Not Available No t Available Vitals Date Recorded Body weight Body mass index (BMI) Body height Body temperature Heart rate Oxygen saturation Oxygen saturation in Arterial blood by Pulse oximetry Systolic And Diastolic Provider Name and Address Organization Details Last Updated DateTime 4 28459.3 g 18.5 kg/m2 187.96 cm 98.3 [degF] 97 /min 99 % 99 % 116/74 mm[Hg] Beata Ordonez RN [facility] [employer] 4 15:21:33 Date Recorded Body height Body mass index (BMI) Body weight Body temperature Heart rate Oxygen saturation Oxygen saturation in Arterial blood by Pulse oximetry Systolic And Diastolic Provider Name and Address Organization Details Last Updated DateTime 4 187.96 cm 18.5 kg/m2 13515.3 g 98.6 [degF] 85 /min 99 % 99 % 116/78 mm[Hg] Beata Ordonez RN [place] [facility] [place] [facility] 4 10:07:55 Social History None recorded. Functional Status Question Answer Note LastModified by Organizat ion Details LastModified Time Do you or have you ever used any other forms of tobacco or nicotine? Yes Information not available 12/21/2023 What is your level of alcohol consumption? Occasional Information not available 12/21/2023 Do you or have you ever used e-cigarettes or vape? Current user of electronic cigarettes Information not available 12/21/2023 Mental Status None recorded. Family History Relationship Description Onset Age of this Age Resolved Age Notes LastModified by Organization Details LastModified Time Maternal Aunt Malignant tumor of breast Not available 2023 15:23:42 Maternal Grandmother Malignant tumor of breast Not available 2023 15:23:42 Father Seizure disorder Not available 2023 15:24:19 Paternal Grandmother Malignant tumor of colon Not available 2023 15:24:51 Paternal Grandfather Heart disease Not available 2023 15:25:01 Medical History No medical history recorded. Past Encounters Encounter ID Performer Location Encounter Start Date Encounter Closed Date Diagnosis/Indication Diagnosis SNOMED-CT Code Diagnosis ICD10 Code Diagnosis Note [id number] RONI Skinner [facility] [address] [place] [address] 12/21/2023 15:04:37 12/29/2023 14:20:33 Lesion of skin of left ear 9700171708 9319054 H93.8X2 -new issue for the left ear-slight pain with pressure applied-de rm referral given-may refer to plastic surgery if no luck Scrotal mass 11149372 N5 0.89 -pt notes hx of scrotal mass, some numbness to the area-has had US in the past, but is unsure of the results-US ordered-wi ll give urology referral [id number] RONI Skinner [facility] [address] [facility] [address] [place] [address] 08/07/2024 09:50:53 08/07/2024 10:26:04 Scrotal mass 49899377 N50.89 -pt notes hx of scrotal mass, some numbness to the area-has had US in the past, but is unsure of the results-US ordered-wi ll give urology referral Abscess of buttock 77587 003 L02.31 has noted the abscess has drained 2 times in the last couple weekstrial bactrim Panic attack 837242364 F 41.0 Health Concerns Section Related Observation LastModified by Organization Detai ls LastModified Time None Recorded Concern Status LastModified by Organization Details LastModified Time None Recorded Advance Directives Directive None Recorded Payers Insurance Date Sequence Insurance Name Policy Number Policy Lennon Covered Member ID Lennon Member ID Guarantor Name 08/07/2024 1 [facility] - DOS ON OR AFTER 21 (MEDICAID REPLACEMENT - HMO) Anali Briseno [id number] Anali Briseno 12/21/2023 1 *SELF PAY* Dangelo Briseno 03/03/2025 1 [place]: [place] [employer] Anali Briseno [id number] Anali Briseno 03/09/2025 [facility] - DOS ON OR AFTER 21 (MEDICAID REPLACEMENT - HMO) Anali Briseno [id number] Anali Briseno 08/07/2024 1 [place] (MEDICARE) Anali Briseno [id number] Anali Briseno Notes Date Note Type Note Provider Name and Address Organization Details Recorded Time 12/21/2023 text/html Pt is here to establish care RONI Skinner [address] [facility], [facility] [address], [place], [address], [facility] 12/22/2023 09:28:13 08/07/2024 text/html pt is here for abscess Gerardo Schreiber, AVIATION ELECTRONICS TECHNICIAN-C [address] [facility], [facility] [address], [place], [address], [place] [facility] 08/07/2024 10:25:36
--- OUTSIDE RECORDS SUMMARY | 2025-06-05 16:02 | XMS_ITS | Clinical Summary ---
Author Organization [facility] Address [address] [facility] [place] [address] Care Team Providers Care Road Supervisor Of Engines Name Role Phone Alison Raymundo MD Primary Care Provider [phone] Source Comments [facility],non-owned Affiliates and Associated Physician Practices is amultiple site organization consisting of ambulatory clinics and hospital sitesin [place], [place], [place] and [place]. This disclosure is being madepursuant to the Care Everywhere program and may not contain all information available regarding this patient. Last updated 18.[facility] Allergies No known active allergies Medications * Be aware that medications may not be up to date on this document. Alwaysverify current medications with the patient. acetaminophen (Tylenol) 325 MG tablet Take 2 (two) tablets by mouth every 6 hours Maximum allowable Acetaminophen amount = 4 Grams (4000 mg) / 24 hours. 06/20/20 22 Active Additional Information Patient not taking.Reported on 07/12/2022 albuterol HFA (Proventil; Ventolin; Proair) 108 (90 Base) MCG/ACT inhaler Inhale 2 puffs by mouth every 4 hours as needed for Wheezing or Shortness of Breath 06/17/20 22 Active oxyCODONE, immediate release, (Roxicodone) 5 MG tabletIndication s:Primary spontaneous pneumothorax Take 1 (one) tablet by mouth every 4 hours as needed 12 tablet 06/26/20 22 Active Additional Information Patient not taking.Reported on 07/12/2022 lidocaine (Lidoderm) 5 % patchIndications :Primary spontaneous pneumothorax Apply 3 (three) patches to skin every 24 hours 10 patch 1 06/26/20 22 Active Additional Information Patient not taking.Reported on 07/12/2022 docusate sodium (Colace) 100 MG capsuleIndicatio ns:Primary spontaneous pneumothorax Take 1 (one) capsule by mouth 2 times daily 30 capsule 3 06/26/20 22 Active Additional Information Patient not taking.Reported on 07/12/2022 polyethylene glycol 3350 (Miralax) 17 g packetIndication s:Primary spontaneous pneumothorax Take 17 (seventeen) g by mouth once daily as needed for Constipation 30 packet 1 06/26/20 22 Active Additional Information Patient not taking.Reported on 07/12/2022 methocarbamol (Robaxin) 500 MG tabletIndication s:Primary spontaneous pneumothorax Take 1 (one) tablet by mouth every 6 hours 20 tablet 06/26/20 22 Active Additional Information Patient not taking.Reported on 07/12/2022 Active Problems Problem Noted Date Diagnosed Date Primary spontaneous pneumothorax 06/18/2022 Resolved Problems Problem Noted Date Diagnosed Date Resolved Date Bleb, lung 01/04/2022 06/19/2022 Pneumothorax on right 10/26/20212021 Immunizations Immunization Administration Dates Next Due DTAP, HISTORIC VACCINE 03/23/2006,06/27/2003 DTaP HIB,HISTORIC VACCINE 06/27/2003 DTaP VACCINE IM (6wk-6yrs) 2002,,2002,05/11 HEP A PED/ADULT VACCINE 03/23/2006 HEP A PEDS 2 DOSE 04/05/2005 HEP B VACCINE 2002,2002,2002 HIB VACCINE 06/27/2003,2002,2002 HIB-HAEMOPHILUS INFLUENZAE B CONJUGATE VACCINE 2002 Human Papilloma Virus Manish valent Vaccine 07/15/2016 MENINGOCOCCAL ACWY (MCV4P) VAC IM 07/09/2021 MENINGOCOCCAL VACCINE 06/20/2015 MMR VACCINE 03/23/2006,03/13/2003 PNEUMOCOCCAL PCV VACCINE 03/23/2006,04/,2002,09/12 PNEUMOCOCCAL PCV7 CONJ, PEDS 06/27/2003,05/11/20 02 POLIO,HISTORIC VACCINE 03/23/2006,2001,2002,05/11 TDAP, HISTORIC VACCINE 06/20/2015 VARICELLA 08/03/2007,03/13/2003 Family History Medical History Relation Name Comments None Known Father None Known Mother Relation Name Status Comments Father Mother Social History Tobacco Use Types Packs/Day Years Used Date Smoking Tobacco: Former Cigarettes 1 11.6 2 011 - 06/18/2022 Smokeless Tobacco: Never Tobacco Cessation:Counseling Given: Yes Alcohol Use Standard Drinks/Week Comments Not Currently 0 (1 standard drink = 0.6 oz pur e alcohol) socially AUDIT-C Answer Date Recorded Q1: How often do you have a drink containing alc ohol? 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 Gender Identity Not on file Sexual Orientation Not on file Last Filed Vital Signs Vital Sign Reading Time Taken Comments Blood Pressure 100/60 07/12/2022 2:24 PM CDT Pulse 106 07/12/2022 2:24 PM CDT Temperature 36.8 C (98.3 F) 06/26/2022 7:21 AM CDT Respiratory Rate 15 06/26/2022 7:21 AM CDT Oxygen Saturation 95% 07/12/2022 2:24 PM CDT Inhaled Oxygen Concentration 21% 10/29/2021 3 :40 AM CUSTOMS INVESTIGATOR Weight 61.2 kg (135 lb) 07/12/2022 2:24 PM CDT Height 185.4 cm (6' 1) 07/12/2022 2:24 PM CDT Body Mass Index 17.81 07/12/2022 2:24 PM CDT Plan of Treatment Health Maintenance Due Date Last Done Comments HPV VACCINE (2 - Male 2-dose series) 01/12/2017 07/15/2016 MENINGOCOCCAL (Group B) VACCINE SHARED DECISION-MAKING (1 of 2 - Standard) 2018 HEPATITIS C SCREENING 03/03/2020 COVID-19 VACCINE (1 - season) 2024 DEPRESSION SCREENING 11/14/2024 DTAP/TDAP/TD VACCINES (7 - Td or Tdap) 06/20/2025 06/20/2015, 03/23/2006, 06/27/2003, Additional history exists INFLUENZA VACCINE (#1) 2025 ZOSTER VACCINE (1 of 2) 2052 HEPATITIS B VACCINE Completed 2002, 2002, 2002 HIB VACCINE Completed 06/27/2003, 06/14, 2002, Additional history exists PNEUMOCOCCAL VACCINE Completed 03/23/2006, 06/27/2003, 03/13/2003, Additional history exists HIV SCREENING Completed 09/02/2019 MENINGOCOCCAL GROUPS A/C/Y/W VACCINE Aged Out 07/09/2021, 06/20/2015 No longer eligibl e based on patient's age to complete this topic Insurance [facility] Advance Directives * Full Code (Latest Code Status on File) Date Activated Date Inactivated Comments 06/24/2022 9:40 AM 06/26/2022 1:37 PM * Full Code Date Activated Date Inactivated Comments 06/19/2022 8:50 AM 06/20/2022 1:47 PM * Full Code Date Activated Date Inactivated Comments 10/27/2021 1:26 AM 10/29/2021 3:[address] Supervisor Of Engines Relationship Specialty Start Date End Date Alison Raymundo MD [address] [place], [place] [id number] PCP - General Internal Medicine 06/18/22
[2025-06-05 16:05] VITALS: BP 134/61; PULSE 99; RESP 16; TEMP 36.6; O2SAT 98
[2025-06-05 20:00] VITALS: BP 117/63; PULSE 88; RESP 18; TEMP 36.2; O2SAT 98
[2025-06-05 22:00] VITALS: BP 112/69; PULSE 82; RESP 11; O2SAT 96
--- NOTE | 2025-06-05 22:29 | ED_ITS ---
HPI - Skin/Abscess/Foreign Bdy General Chief complaint: Skin/Abscess/Foreign Body Stated complaint: cyst on rectum? Time Seen by Provider: 06/05/25 21:51 History of Present Illness HPI narrative: 25-year-old male presents to the emergency department for recurrent perirectal abscess. Patient states he has had a left-sided perirectal or abscess recur 4-5 times. He states this morning around 2:00 a.m. he felt the area to the left side of his rectum to come enlarged and painful. He went to urgent care today and was advised to come to the ED for further evaluation and imaging. The patient states he was last on antibiotics about a month ago which she completed with improvement until the abscess recurred again. He has never followed up with a general surgeon. He states on his way to urgent care he did notice the abscess began to drain and states the provider did express some purulence from the abscess and he has had some drainage since. He denies fever, abdominal pain, history of ulcerative colitis or Crohn's disease. Related Data Home Medications ?Medication ?Instructions ?Recorded ?Confirmed ?Last Taken ?Type No Home Medications 06/05/25 06/05/25 Unknown History Allergies Allergy/AdvReac Type Severity Reaction Status Date / Time poison charlee extract Allergy Unknown Rash Verified 06/05/25 15:44 Bumble Bee Allergy Unknown Swelling Uncoded 03/03/25 14:54 Wasp Allergy Unknown Swelling Uncoded 03/03/25 14:54 Review of Systems 2 Review of Systems: All systems reviewed & are unremarkable except as noted in HPI and below PMFSH Past Medical History Medical History Spontaneous pneumothorax No acute medical problems Surgical History Surgical History History of lung surgery Blebecotmy to me, right apical Social History Social History Smoking status: Current every day smoker Alcohol intake: current Gender identity (if verbalized by the patient): Male Spiritual care concerns: No Exam 2 Narrative: GENERAL: Well-appearing, well-nourished, and in no acute distress. HEAD: Normocephalic, atraumatic. EYES: EOMI. ENT: Nares clear, no rhinorrhea or epistaxis. Mucous membranes moist. NECK: Supple. CHEST: Clear to auscultation. No respiratory distress. HEART: Regular rate and rhythm. No murmur heard. Normal peripheral pulses. ABDOMEN: Soft, nontender, nondistended, normal active bowel sounds. Rectal exam chaperoned by Jazlyn Brown shows a approximately 3 cm area of induration to the left perirectal region with 2 small open pinpoint holes, no active drainage or fluctuance, no crepitus, no involvement of the anus, no bleeding EXTREMITIES: Normal range of motion. No edema. SKIN: Warm, dry, no rash. NEURO: No focal deficits. Alert and oriented x3 Course Vital Signs Vital signs: Vital Signs Temperature 97.8 F 06/05/25 16:05 Pulse Rate 99 06/05/25 16:05 Respiratory Rate 16 06/05/25 16:05 Blood Pressure 134/61 06/05/25 16:05 Pulse Oximetry 98 06/05/25 16:05 Temperature 97.2 F L 06/05/25 20:00 Pulse Rate 83 06/06/25 00:24 Respiratory Rate 16 06/06/25 00:24 Blood Pressure 119/75 06/06/25 00:24 Pulse Oximetry 97 06/06/25 00:24 MDM - Skin/Abscess/Foreign Bdy MDM Narrative Medical decision making narrative: 25-year-old male with reported history of recurrent rectal abscesses presents to the emergency department for a rectal abscess that he noticed at 2:00 a.m. this morning. Patient went to urgent care and was advised to come to the ED for further workup and imaging. Triage vitals are stable. Patient is afebrile and nontoxic appearing. Exam is significant for the above. Lab work shows no leukocytosis or bandemia. Chemistries are unremarkable. Lipase within normal limits. Lactic within normal limits. CT abdomen pelvis IMPRESSION: 1. Prominent perirectal abscess or acute intra-abdominal/pelvic process. 2. 2 mm nonobstructing left renal stone. I did discuss impression with radiologist, Dr. Garcia, who confirms he meant to say NO prominent perirectal abscess.... He plans to add an addendum in the morning as he has already left the hospital for the day. Patient was updated on results. Suspect abscess appropriately drained spontaneously and with expression from [facility] [employer] at [facility]. Will start the patient on ciprofloxacin and Flagyl and have him follow-up closely with General surgery. Advised Tylenol and ibuprofen as needed for pain and frequent Sitz baths. Discussed strict ED return precautions. He is agreeable with the plan verbalized understanding. Discharged in stable condition. Lab Data 06/05/25 22:36 06/05/25 22:36 Labs: Lab Results 06/05/25 Range/Units 22:36 WBC 10.0 (4.5-10.0) K/mm3 RBC 5.09 (4.6-6.20) M/mm3 Hgb 15.8 (14.0-18.0) g/dL Hct 46.2 (42.0-52.0) % MCV 90.8 (80-100) fl MCH 31.0 (26-34) pg MCHC 34.2 (32-36) g/dl RDW 12.2 (11.5-14.5) % Plt Count 193 (150-375) k/mm3 MPV 9.0 (7.4-10.4) fl Immature Gran % (Auto) 0.4 (0-0.5) % Neut % (Auto) 75.4 H (45.5-73.1) % Lymph % (Auto) 15.4 L (18.3-44.2) % Brantley % (Auto) 7.8 (2.6-8.5) % Eos % (Auto) 0.7 (0-4.4) % Baso % (Auto) 0.3 (0.2-1.2) % Lymph # (Auto) 1.53 (0.9-3.2) K/mm3 Brantley # (Auto) 0.8 H (0.1-0.6) K/mm3 Eos # (Auto) 0.1 (0-0.3) K/mm3 Baso # (Auto) 0.0 (0.0-0.1) K/mm3 Abs Immat Gran (auto) 0.04 H (0.00-0.031) K/mm3 Absolute Neuts (auto) 7.5 H (1.3-6.7) K/mm3 Absolute Nucleated RBC 0.000 (0.0-0.012) K/mm3 Nucleated RBC % 0.0 (0.0-0.2) % Sodium 136 L (137-145) mmol/L Potassium 4.2 (3.4-5.0) mmol/L Chloride 102 (98-107) mmol/L Carbon Dioxide 26 (22-30) mmol/L Anion Gap 8 (4-12) mmol/L BUN 13 (9-20) mg/dL Creatinine 1.08 (0.7-1.3) mg/dL Estim Creat Clear Calc 88 ml/min Estimated GFR > 60 (59 - ) Glucose 104 (65-110) mg/dL Lactic Acid 0.9 (0.7-2.0) mmol/L Calcium 9.4 (8.4-10.2) mg/dL Total Bilirubin 1.1 (0.2-1.3) mg/dL AST 33 (17-59) U/L ALT 33 (6-50) U/L Alkaline Phosphatase 62 (38-126) U/L Total Protein 8.0 (6.3-8.2) g/dL Albumin 4.7 (3.5-5.1) g/dL Lipase 55 (23-300) U/L Discharge Plan Discharge Clinical Impression: Perirectal abscess, Left nephrolithiasis Patient Disposition: Home Condition: Stable Instructions: Antibiotic Form, Abscess (ED), Sitz Bath (DC) Additional Instructions: You were evaluated in the emergency department for a recurrent perirectal abscess. The CT scan shows no focal fluid collection that needs to be drained at this time. I suspect this is because the abscess has already drained throughout the day. Please take the antibiotics as directed and follow-up closely with the general surgeon for further evaluation and management. Return to the emergency department if he develops significantly worsening pain, spreading redness, fever, or other concerning symptoms. Take Tylenol ibuprofen as needed for pain as directed on the bottle and perform Sitz baths several times a day as discussed. Patient Language: Ugandan Prescriptions: New ciprofloxacin HCl 500 mg tablet 500 mg PO Q12H Qty: 14 0RF metronidazole 500 mg tablet 500 mg PO Q8H 7 Days Qty: 21 0RF No Action No Home Medications Follow-up/Referrals: PHYSICIAN,SUBWAY OPERATOR [Primary Care Provider] - Drake Terrazas MD [Physician] -
--- OUTSIDE RECORDS SUMMARY | 2025-06-05 22:34 | XMS_ITS | Clinical Summary ---
Author Organization [facility] Address [address] [place] [address] Care Team Providers Care Radiation Protection Technician Name Role Phone Alison Raymundo MD Primary Care Provider [phone] Source Comments [facility],non-owned Affiliates and Associated Physician Practices is amultiple site organization consisting of ambulatory clinics and hospital sitesin [place], [place] and [place]. This disclosure is being madepursuant to the Care Everywhere program and may not contain all information available regarding this patient. 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 Gender Identity Not on file Sexual Orientation [...] Oxygen Concentration 21% 10/29/2021 3 :40 AM AGRICULTURAL ENGINEERING TECHNICIAN Weight 61.2 kg (135 lb) 07/12/2022 2:24 [...] patient's age to complete this topic Insurance [facility] Advance Directives * Full Code (Latest Code Status on File) Date Activated Date Inactivated Comments 06/24/2022 9:40 AM 06/26/2022 1:37 PM * Full Code Date Activated Date Inactivated Comments 06/19/2022 8:50 AM 06/20/2022 1:47 PM * Full Code Date Activated Date Inactivated Comments 10/27/2021 1:26 AM 10/29/2021 3:12 PM Care Teams Radiation Protection Technician Relationship Specialty Start Date End Date Alison Raymundo MD [address], [place] [id number] PCP - General Internal Medicine 06/18/22
--- OUTSIDE RECORDS SUMMARY | 2025-06-05 22:34 | XMS_ITS | Clinical Summary ---
Author Organization [facility] Address [address] [place] [id number] Care Team Providers Care Salon Stylist Name Role Phone Dewey Sanchez MD Primary Care Provider [phone] Allergies No known active allergies Social History [...] patient's age to complete this topic Insurance [facility] [place] Care Teams Salon Stylist Relationship Specialty Start Date End Date Dewey Sanchez MD [address] [place] [address] PCP - General 09/02/19
[2025-06-05] MEDS: KETOROLAC 30 MG/ML VIAL (*BKC) IV PUSH (22:38)
[2025-06-05 22:46] LABS: Hematocrit 46.2 % (42.0-52.0); Hemoglobin 15.8 g/dL (14.0-18.0); Immature Granulocyte Percent A 0.4 % (0-0.5); Lymphocytes Absolute Auto 1.53 K/mm3 (0.9-3.2); Mean Corpuscular HGB Conc 34.2 g/dl (32-36); Mean Corpuscular Hemoglobin 31.0 pg (26-34); Mean Corpuscular Volume 90.8 fl (80-100); Nucleated Red Blood Cells Absolute Auto 0.000 K/mm3 (0.0-0.012); Nucleated Red Blood Cells Perc 0.0 % (0.0-0.2); Platelet Count Result 193 k/mm3 (150-375); Red Blood Count 5.09 M/mm3 (4.6-6.20); White Blood Count 10.0 K/mm3 (4.5-10.0)
[2025-06-05 23:05] LABS: Alanine Aminotransferase 33 U/L (6-50); Albumin Level 4.7 g/dL (3.5-5.1); Alkaline Phosphatase 62 U/L (38-126); Anion Gap 8 mmol/L (4-12); Aspartate Amino Transferase 33 U/L (17-59); Bilirubin,Total 1.1 mg/dL (0.2-1.3); Blood Urea Nitrogen 13 mg/dL (9-20); Calcium 9.4 mg/dL (8.4-10.2); Carbon Dioxide 26 mmol/L (22-30); Chloride 102 mmol/L (98-107); Estimated CRCL calculation 88 ml/min; Estimated Glomerular Filt Rate > 60; Glucose 104 mg/dL (65-110); Lipase 55 U/L (23-300); Potassium 4.2 mmol/L (3.4-5.0); Sodium 136 mmol/L (137-145); Total Protein 8.0 g/dL (6.3-8.2)
[2025-06-05 23:36] VITALS: BP 122/65; PULSE 77; RESP 13; O2SAT 94
[2025-06-06 00:24] VITALS: BP 119/75; PULSE 83; RESP 16; O2SAT 97
[2025-06-06] MEDS: CIPROFLOXACIN 500 MG TAB PO (00:53)
[2025-06-06 01:05] VITALS: BP 119/75; PULSE 83; RESP 16; O2SAT 97
== END 2025-06-06 01:08 | disposition home or self-care (01) ==
PROVIDERS: Emergency Provider Physician Assistant
DX: K61.1 Rectal abscess (principal); N20.0 Calculus of kidney; F17.200 Nicotine dependence, unspecified, uncomplicated
CPT/HCPCS: 36415; 74177; 80053; 83605; 83690; 85025; 96374; 99284; A9270; J1885; Q9967